=== PATIENT | male | born 1985 | race Hispanic/Latino ===

== ENCOUNTER 2022-05-23 05:54 | Observation (INO) | payer OTHER, SELFPAY ==
[2022-05-23 06:44] LABS: #Eosinphils 0.1 thou/uL (0.0-0.7); #Lymphocytes 1.3 thou/uL (1.20-3.40); #Monocytes 0.7 thou/uL (0.11-0.59); #Neutrophils 12.9 thou/uL (1.40-6.50); %Basophils 0.2 % (0.0-1.0); %Eosinophils 0.3 % (0.0-10.0); %Lymphocytes 8.5 % (21.0-51.0); %Monocytes 4.5 % (0.0-10.0); %Neutrophils 86.4 % (42.0-75.0); Hemoglobin 14.6 g/dL (14.0-18.0); Mean Corpuscular HGB CONC 32.7 g/dL (32.0-36.0); Mean Corpuscular Hemoglobin 26.4 pg (27.0-31.0); Mean Corpuscular Volume 80.7 fl (78.0-98.0); Mean Platelet Volume 9.1 fL (7.4-10.4); Platelet Count 223 10x3/uL (130-400); RBC Distribution Width 12.2 % (11.5-14.5); Red Blood Cell (RBC) Count 5.53 mill/uL (4.70-6.10); White Blood Cell (WBC) Count 14.9 10x3/uL (4.8-10.8)
[2022-05-23 07:11] LABS: ALT (SGPT) 24 U/L (8-55); AST (SGOT) 34 U/L (5-34); Albumin 4.2 g/dL (3.5-5.0); Alkaline Phosphatase 78 U/L (40-110); Anion Gap 12 mmol/L (10-20); BUN (Urea Nitrogen) 16 mg/dL (8.9-20.6); Bilirubin, Total 0.3 mg/dL (0.2-1.2); Calc. Creatinine Clearance 0 mL/min (70-130); Calcium 8.9 mg/dL (7.8-10.44); Carbon Dioxide 24 mmol/L (22-29); Chloride 106 mmol/L (98-107); Estimated GFR 113; Globulin 3.1 g/dL (2.4-3.5); Glucose 101 mg/dL (70-105); Potassium 3.6 mmol/L (3.5-5.1); Protein, Total 7.3 g/dL (6.0-8.3); Sodium 138 mmol/L (136-145)
[2022-05-23] MEDS ORDERED: CEFAZOLIN 2 GM in Sodium Chloride 0.9% 100 ML IVPB SCH (08:00)
[2022-05-23] MEDS ORDERED: Ondansetron PF 4 MG/2 ML Vial IVP PRN (09:08)
[2022-05-23] MEDS ORDERED: Morphine 4 MG/ML VIAL SLOW IVP PRN (09:08)
[2022-05-23] MEDS ORDERED: Dextrose 5% in Water 1,000 ML IV PRN (09:08)
[2022-05-23] MEDS ORDERED: hydrALAZINE 20 MG/ML VIAL SLOW IVP PRN (09:08)
[2022-05-23] MEDS ORDERED: Dextrose 50% Abboject 50 ML SYRINGE SLOW IVP PRN (09:08)
[2022-05-23] MEDS ORDERED: Cyclobenzaprine 10 MG TAB PO PRN (09:12)
[2022-05-23 09:27] LABS: SARS-CoV-2 NAA Rapid Test Not Detected (NotDetected)
[2022-05-23] MEDS ORDERED: traMADol HCl 50 MG TAB PO SCH (12:00)
[2022-05-23] MEDS ORDERED: Acetaminophen 500 MG TAB PO SCH (12:00)
[2022-05-23] MEDS ORDERED: Iopamidol-370 76% 500 ML 1 ML ONE (12:09)
[2022-05-23] MEDS ORDERED: Ibuprofen 200 MG TAB PO SCH (14:00)
[2022-05-23] MEDS ORDERED: Gabapentin 300 MG CAP PO SCH (15:00)
[2022-05-23] MEDS ORDERED: HYDROmorphone 2 MG/ML VIAL SLOW IVP PRN (16:13)
[2022-05-23] MEDS ORDERED: Ketorolac Tromethamine 30 MG/ML VIAL IVP PRN (16:13)
[2022-05-23] MEDS ORDERED: Morphine Sulfate 2 MG/ML SYRINGE SLOW IVP PRN (16:13)
[2022-05-23] MEDS ORDERED: Meperidine HCl/PF 25 MG/ML VIAL SLOW IVP PRN (16:13)
[2022-05-23] MEDS ORDERED: Promethazine HCl 25 MG/ML VIAL IM PRN (16:13)
[2022-05-23] MEDS ORDERED: Ondansetron HCl/PF 4 MG/2 ML Vial IVP PRN (16:13)
[2022-05-23] MEDS ORDERED: Senokot S 8.6-50 MG TAB PO SCH (21:00)
[2022-05-23] MEDS ORDERED: Famotidine 20 MG TAB PO SCH (21:00)
[2022-05-24] MEDS ORDERED: Polyethylene Glycol 3350 17 GM Packet PO SCH (09:00)
[2022-05-24] MEDS ORDERED: TETANUS, DIPHTHERIA TOX,ADULT (TDVAX) 0.5 ML VIAL IM ONE (09:00)
== END 2022-05-23 17:44 | disposition home or self-care (01) ==
LOC: ERS 05:54 → ERHOLD 09:13
PROVIDERS: ADMIT Surgery; ATTEND Surgery
PROC: 0QSJ04Z Reposition Right Fibula with Internal Fixation Device, Open Approach (ICD-10-PCS; principal; 2022-05-23)
PROC: 0QSG04Z Reposition Right Tibia with Internal Fixation Device, Open Approach (ICD-10-PCS; 2022-05-23)
DX: S82.841A Displaced bimalleolar fracture of right lower leg, initial encounter for closed fracture (principal); S93.431A Sprain of tibiofibular ligament of right ankle, initial encounter; S39.91XA Unspecified injury of abdomen, initial encounter; Z20.822 Contact with and (suspected) exposure to COVID-19; W20.8XXA Other cause of strike by thrown, projected or falling object, initial encounter; X50.1XXA Overexertion from prolonged static or awkward postures, initial encounter; Y92.69 Other specified industrial and construction area as the place of occurrence of the external cause; Y99.0 Civilian activity done for income or pay
CPT/HCPCS: 29515; 36415; 71045; 74177; 80053; 85025; 96374; 96375; C1713; C1776; C1874; G0378; G0390; J1100; J1885; J2250; J2270; J2405; J2704; J2765; J3010; J3490; Q9967; S0020; S0028; U0002

== ENCOUNTER 2023-11-09 13:29 | Inpatient (IN) | payer SELFPAY ==
[2023-11-09 14:43] LABS: #Basophils 0.05 10x3/uL (0.0-0.2); %Basophils 0.7 % (0.0-1.0); %Lymphocytes 22.8 % (21.0-51.0); %Monocytes 11.4 % (0.0-10.0); %Neutrophils 63.8 % (42.0-75.0); Hematocrit 29.9 % (42.0-52.0); Mean Corpuscular HGB CONC 26.8 g/dL (32.0-36.0); Mean Corpuscular Hemoglobin 15.2 pg (27.0-31.0); Mean Corpuscular Volume 56.6 fL (78.0-98.0); Platelet Count 290 10x3/uL (130-400); Red Blood Cell (RBC) Count 5.28 mill/uL (4.70-6.10)
[2023-11-09 14:54] LABS: ALT (SGPT) 30 U/L (8-55); AST (SGOT) 24 U/L (5-34); Alkaline Phosphatase 71 U/L (40-110); Anion Gap 12 mmol/L (10-20); BUN (Urea Nitrogen) 14 mg/dL (8.9-20.6); Bilirubin, Total 0.3 mg/dL (0.2-1.2); Calc. Creatinine Clearance 0 mL/min (70-130); Calcium 9.2 mg/dL (7.8-10.44); Carbon Dioxide 26 mmol/L (22-29); Chloride 105 mmol/L (98-107); Estimated GFR 116; Globulin 3.7 g/dL (2.4-3.5); Glucose 110 mg/dL (70-105); Potassium 3.4 mmol/L (3.5-5.1); Protein, Total 7.7 g/dL (6.0-8.3); Sodium 140 mmol/L (136-145)
[2023-11-09 14:55] LABS: Prothrombin Time 12.8 sec (12.0-14.7)
[2023-11-09 14:59] LABS: PTT 22.1 sec (22.9-36.1)
[2023-11-09 15:06] LABS: Anisocytosis SLIGHT = 6-15 cells HPF (0-5); Elliptocytes SLIGHT = 2-5 cells HPF (0-1); Hypochromia SLIGHT = 6-15 cells HPF (0-5); Platelet Adequacy Comment Platelets Normal; Poikilocytosis SLIGHT = 6-15 cells HPF (0-5); Polychromasia SLIGHT = 2-3 cells HPF (0-2); Schistocytes SLIGHT = 2-5 cells HPF (0-1); Target Cells SLIGHT = 2-5 cells HPF (0-1)
[2023-11-09] MEDS ORDERED: Ondansetron ODT 4 MG TAB SL PRN (16:20)
[2023-11-09] MEDS ORDERED: Ondansetron PF 4 MG/2 ML Vial IVP PRN ×2 (16:20→18:22)
[2023-11-09] MEDS ORDERED: Acetaminophen 325 MG TAB PO PRN ×2 (16:20→18:22)
[2023-11-09 16:29] LABS: Iron 10 ug/dL (65-175); Iron Binding Capacity, Total 490 mcg/dL (261-462)
[2023-11-09] MEDS ORDERED: Ondansetron ODT 4 MG TAB PO PRN (18:22)
[2023-11-09 19:26] LABS: Magnesium 2.3 mg/dL (1.6-2.6)
[2023-11-09] MEDS: Potassium Chloride 20 MEQ TAB PO SCH (22:09)
[2023-11-09] MEDS: GoLYTELY 4,000 ml Bottle PO SCH (22:10)
[2023-11-09] MEDS: Sodium Ferric Gluconate 125 MG in Sodium Chloride 0.9% 100 ML IVPB SCH (22:38)
[2023-11-10] MEDS: GoLYTELY 4,000 ml Bottle PO SCH (02:00)
[2023-11-10 05:32] LABS: #Basophils 0.07 10x3/uL (0.0-0.2); %Basophils 0.9 % (0.0-1.0); %Eosinophils 1.1 % (0.0-10.0); %Lymphocytes 28.1 % (21.0-51.0); %Monocytes 10.3 % (0.0-10.0); %Neutrophils 59.3 % (42.0-75.0); Hematocrit 30.6 % (42.0-52.0); Hemoglobin 8.3 g/dL (14.0-18.0); Mean Corpuscular HGB CONC 27.1 g/dL (32.0-36.0); Mean Corpuscular Hemoglobin 15.1 pg (27.0-31.0); Mean Corpuscular Volume 55.8 fL (78.0-98.0); Platelet Count 374 10x3/uL (130-400); Red Blood Cell (RBC) Count 5.48 mill/uL (4.70-6.10)
[2023-11-10 05:56] LABS: Elliptocytes SLIGHT = 2-5 cells HPF (0-1); Hypochromia SLIGHT = 6-15 cells HPF (0-5); Microcytosis MODERATE=15-30 cells HPF (0-5); Platelet Adequacy Comment Platelets Normal; Polychromasia SLIGHT = 2-3 cells HPF (0-2); Target Cells SLIGHT = 2-5 cells HPF (0-1)
[2023-11-10 06:10] LABS: Anion Gap 11 mmol/L (10-20); BUN (Urea Nitrogen) 9 mg/dL (8.9-20.6); Calc. Creatinine Clearance 125 mL/min (70-130); Carbon Dioxide 24 mmol/L (22-29); Chloride 105 mmol/L (98-107); Estimated GFR 116; Glucose 103 mg/dL (70-105); Potassium 2.9 mmol/L (3.5-5.1); Sodium 137 mmol/L (136-145)
[2023-11-10] MEDS: Potassium Phosphate 30 MMOL in Sodium Chloride 0.9% 250 ML 250 ML IVPB SCH (09:55)
[2023-11-10] MEDS ORDERED: Electrolyte Replacement Protocol 1 EACH FS SCH (12:30)
[2023-11-10 15:07] VITALS: BMI 25.6
[2023-11-10] MEDS ORDERED: PROPOFOL 40 ML ONE (16:16)
[2023-11-10] MEDS ORDERED: fentaNYL PF 100 MCG/2 ML SYRINGE ONE (16:16)
[2023-11-10] MEDS ORDERED: Midazolam HCl 2 mg/2 ml Vial ONE (16:25)
[2023-11-10] MEDS ORDERED: Ondansetron HCl/PF 4 MG/2 ML Vial IVP PRN (17:04)
[2023-11-10] MEDS ORDERED: Promethazine HCl 25 MG/ML VIAL IM PRN (17:04)
[2023-11-10] MEDS: Potassium Chloride 20 MEQ in Premix 1 BAG IVPB SCH (17:57)
[2023-11-11 07:58] LABS: Anion Gap 12 mmol/L (10-20); BUN (Urea Nitrogen) 8 mg/dL (8.9-20.6); Calc. Creatinine Clearance 124 mL/min (70-130); Calcium 8.8 mg/dL (7.8-10.44); Carbon Dioxide 24 mmol/L (22-29); Chloride 107 mmol/L (98-107); Estimated GFR 116; Glucose 90 mg/dL (70-105); Potassium 3.8 mmol/L (3.5-5.1); Sodium 139 mmol/L (136-145)
[2023-11-11 08:27] LABS: Anisocytosis SLIGHT = 6-15 cells HPF (0-5); Band 4 % (5-11); Eosinophils 1 % (0-10); Lymphocytes 21 % (21-51); Macrocytosis SLIGHT = 6-15 cells HPF (0-5); Microcytosis SLIGHT = 6-15 cells HPF (0-5); Monocytes 9 % (0-10); Neutrophil 62 % (42-75); Ovalocytes SLIGHT = 2-5 cells HPF (0-1); Platelet Adequacy Comment Platelets Normal; Poikilocytosis SLIGHT = 6-15 cells HPF (0-5); Polychromasia SLIGHT = 2-3 cells HPF (0-2); Target Cells MODERATE= 6-15 cells HPF (0-1)
[2023-11-11 08:43] LABS: Hemoglobin 7.9 g/dL (14.0-18.0); Mean Corpuscular HGB CONC 27.2 g/dL (32.0-36.0); Mean Corpuscular Hemoglobin 15.2 pg (27.0-31.0); Mean Corpuscular Volume 55.8 fL (78.0-98.0); Platelet Count 388 10x3/uL (130-400)
[2023-11-11] MEDS: Docusate 100 MG CAP PO SCH (08:58)
[2023-11-11] MEDS: Pantoprazole DR 40 MG TAB PO SCH (08:58)
[2023-11-11] MEDS: Apixaban 5 MG TAB PO SCH (22:39)
[2023-11-12 04:53] VITALS: BMI 25.6
[2023-11-12 06:46] LABS: #Basophils 0.07 10x3/uL (0.0-0.2); %Basophils 0.8 % (0.0-1.0); %Eosinophils 1.8 % (0.0-10.0); %Lymphocytes 22.7 % (21.0-51.0); %Monocytes 9.4 % (0.0-10.0); Hematocrit 30.1 % (42.0-52.0); Hemoglobin 8.1 g/dL (14.0-18.0); Mean Corpuscular HGB CONC 26.9 g/dL (32.0-36.0); Mean Corpuscular Hemoglobin 15.5 pg (27.0-31.0); Mean Corpuscular Volume 57.8 fL (78.0-98.0); Platelet Count 330 10x3/uL (130-400); RBC Distribution Width 22.9 % (11.5-14.5); Red Blood Cell (RBC) Count 5.21 mill/uL (4.70-6.10)
[2023-11-12 06:51] LABS: Anion Gap 12 mmol/L (10-20); BUN (Urea Nitrogen) 10 mg/dL (8.9-20.6); Calc. Creatinine Clearance 101 mL/min (70-130); Calcium 9.2 mg/dL (7.8-10.44); Carbon Dioxide 26 mmol/L (22-29); Estimated GFR 97; Glucose 94 mg/dL (70-105); Potassium 3.7 mmol/L (3.5-5.1); Sodium 140 mmol/L (136-145)
[2023-11-12 07:17] LABS: Chloride 106 mmol/L (98-107)
[2023-11-12 07:43] LABS: Hypochromia SLIGHT = 6-15 cells HPF (0-5); Microcytosis SLIGHT = 6-15 cells HPF (0-5); Platelet Adequacy Comment Platelets Normal
[2023-11-12 08:43] VITALS: BP 108/65; TEMP 98.3
== END 2023-11-12 15:05 | disposition home or self-care (01) | DRG 812 ==
LOC: ERS 13:29 → T4-B 16:36 → OBSVTOIN 11-12 07:57
PROVIDERS: ADMIT Internal Medicine; ATTEND Family Medicine
PROC: 0DB38ZX Excision of Lower Esophagus, Via Natural or Artificial Opening Endoscopic, Diagnostic (ICD-10-PCS; principal; 2023-11-10)
DX: D50.9 Iron deficiency anemia, unspecified (principal); I82.431 Acute embolism and thrombosis of right popliteal vein; I82.441 Acute embolism and thrombosis of right tibial vein; K22.70 Barrett's esophagus without dysplasia; E87.6 Hypokalemia; K44.9 Diaphragmatic hernia without obstruction or gangrene; K21.9 Gastro-esophageal reflux disease without esophagitis; Z79.899 Other long term (current) drug therapy; Z98.890 Other specified postprocedural states
CPT/HCPCS: 36415; 80048; 80053; 82728; 83540; 83550; 83735; 85025; 85610; 85730; 88305; 88312; 88313; 96374; 96375; 96376; G0378; J2250; J2704; J2916; J3480; J7050

== ENCOUNTER 2023-11-13 18:03 | Emergency (ER) | payer SELFPAY | END 2023-11-13 21:52 | disposition home or self-care (01) | LOC: ERS 18:03 | DX: I80.8 Phlebitis and thrombophlebitis of other sites (principal) ==

== ENCOUNTER 2024-05-08 16:19 | Emergency (ER) | payer SELFPAY ==
[2024-05-08] MEDS ORDERED: Ketorolac Tromethamine 30 MG (1 mL) VIAL ONE (19:53)
[2024-05-08] MEDS ORDERED: prednisoLONE 1% Ophth Susp 5 ml Bottle EA EYE SCH (20:15)
== END 2024-05-08 21:17 | disposition home or self-care (01) ==
LOC: ERS 16:19
CPT/HCPCS: 87428; 96372; 99284; J1885